=== PATIENT | female | born 1975 | race Caucasian/White ===

== ENCOUNTER 2018-04-14 08:09 | Emergency (ER) | payer SELFPAY ==
[~2018-04-14] VITALS: Ht 157.5 cm; Wt 83.9 kg
[2018-04-14 08:15] VITALS: BP 121/45
--- NOTE | 2018-04-14 08:21 | NUR ---
PT AMBULATES TO BED 11
--- NOTE | 2018-04-14 08:28 | NUR ---
42 Y/O F CAME TO ED WITH C/O CHEST PAIN THAT RADIATES TO L ARM. PAIN /. LABORED BREATHING. 02 STAT 98%. LUNG ROONEY CLEAR BILATERALLY. IN L ARM HAS SOME INTERMINTENT NUMBESS AND TINGLING, MAKING IT DIFFICULT TO MOVE. EXPERIENCING SYMPTOMS SINCE LAST NIGHT. EQUAL HAND GRASPS. HAS EXPERIENCED THIS PAIN BEFORE, BUT RESOLVED ON IT OWN. MD NOTIFIED. WILL CONTINUE TO MONITOR.
[2018-04-14] MEDS ORDERED: KETOROLAC 30 MG/ML VIAL IVP ONE (08:35)
[2018-04-14] MEDS ORDERED: ONDANSETRON 4 MG/2 ML VIAL IVP ONE (08:35)
[2018-04-14] MEDS ORDERED: MORPHINE SULFATE 2 MG/ML SYR IVP ONE (08:35)
--- NOTE | 2018-04-14 09:05 | NUR ---
XRAY AT BEDSIDE
[2018-04-14 09:14] LABS: BASOPHILS % (AUTO) 0.5 % (0.0-2.0); EOSINOPHILS # (AUTO) 0.3 K/uL (0-0.4); EOSINOPHILS % (AUTO) 5.5 % (0.0-4.0); HEMOGLOBIN 13.3 g/dL (12.0-16.0); LYMPHOCYTES # (AUTO) 1.2 K/uL (2.5-16.5); LYMPHOCYTES % (AUTO) 23.4 % (20.5-51.1); MEAN CORPUSCULAR HEMOGLOBIN 31 pg (27-31); MEAN CORPUSCULAR HGB CONC 34 g/dL (33-37); MEAN CORPUSCULAR VOLUME 90.7 fL (80-94); MONOCYTES # (AUTO) 0.4 K/uL (0.8-1.0); NEUTROPHILS # (AUTO) 3.3 K/uL (1.8-7.7); NEUTROPHILS % (AUTO) 63.6 % (42.2-75.2); PLATELET COUNT (AUTO) 301 K/uL (140-450); WHITE BLOOD COUNT (AUTO) 5.2 K/uL (4.8-10.8)
[2018-04-14 09:19] LABS: ANION GAP 10.9 (8-16); CARBON DIOXIDE 27.3 mmol/L (21-32); CREATININE 0.8 mg/dL (0.6-1.3); POTASSIUM 4.2 mmol/L (3.5-5.1); PROTHROMBIN TIME 9.7 secs (10.8-13.4)
[2018-04-14 09:25] LABS: ALBUMIN 3.5 g/dL (3.4-5.0); TOTAL BILIRUBIN 0.3 mg/dL (0.0-1.0)
[2018-04-14 11:17] VITALS: BP 121/45
== END 2018-04-14 11:16 | disposition home or self-care (01) ==
LOC: MED 08:09
DX: M94.0 Chondrocostal junction syndrome [Tietze] (principal)
CPT/HCPCS: 36415; 71045; 80053; 81025; 83735; 83880; 84484; 85025; 85379; 85610; 93005; 96374; 96375; 99284; J1885; J2270; Q0092; J2405

== ENCOUNTER 2018-04-15 20:21 | Emergency (ER) | payer SELFPAY ==
[~2018-04-15] VITALS: Ht 170.2 cm; Wt 85.8 kg
[2018-04-15 20:55] VITALS: BP 111/54
[2018-04-15 21:38] LABS: BASOPHILS % (AUTO) 0.3 % (0.0-2.0); EOSINOPHILS # (AUTO) 0.3 K/uL (0-0.4); EOSINOPHILS % (AUTO) 2.9 % (0.0-4.0); HEMATOCRIT 35.8 % (36-48); HEMOGLOBIN 12.4 g/dL (12.0-16.0); LYMPHOCYTES # (AUTO) 1.3 K/uL (2.5-16.5); LYMPHOCYTES % (AUTO) 14.6 % (20.5-51.1); MEAN CORPUSCULAR HEMOGLOBIN 31 pg (27-31); MEAN CORPUSCULAR HGB CONC 35 g/dL (33-37); MEAN CORPUSCULAR VOLUME 90.9 fL (80-94); MONOCYTES # (AUTO) 0.6 K/uL (0.8-1.0); MONOCYTES % (AUTO) 6.8 % (1.7-9.3); NEUTROPHILS # (AUTO) 6.9 K/uL (1.8-7.7); NEUTROPHILS % (AUTO) 75.4 % (42.2-75.2); PLATELET COUNT (AUTO) 290 K/uL (140-450); RED BLOOD CELL COUNT(AUTO) 3.93 MIL/uL (4.20-5.40); RED CELL DISTRIBUTION WIDTH 12.4 % (11.6-13.7); WHITE BLOOD COUNT (AUTO) 9.2 K/uL (4.8-10.8)
[2018-04-15 21:50] LABS: ANION GAP 10.2 (8-16); CARBON DIOXIDE 28.6 mmol/L (21-32); CREATININE 0.6 mg/dL (0.6-1.3); POTASSIUM 3.8 mmol/L (3.5-5.1)
[2018-04-15 21:57] LABS: ALBUMIN 3.1 g/dL (3.4-5.0); TOTAL BILIRUBIN 0.4 mg/dL (0.0-1.0)
--- NOTE | 2018-04-15 22:28 | NUR ---
PT TAKEN TO BED 11
--- NOTE | 2018-04-15 22:32 | NUR ---
PT CO 10/10 CHEST PAIN AND SOB. EKG DONE IN TRIAGE. VSS. PT WAS SEEN YESTERDAY FOR SAME ISSUE AND WAS PRESCRIBED VOLTAREM XR 100MG BUT REPORTS IT HAS GOTTEN WORSE. PT REPORTS NAUSEA IN THE AM.
--- NOTE | 2018-04-15 23:45 | NUR ---
Dr. Benton evaluating patient at bedside.
[2018-04-15] MEDS ORDERED: KETOROLAC 60 MG/2 ML VIAL IM ONE (23:50)
[2018-04-16 00:45] VITALS: BP 108/60
--- NOTE | 2018-04-16 00:45 | NUR ---
Patient discharged with v/s stable. Written and verbal after care instructions given and explained. Patient alert, oriented and verbalized understanding of instructions. Ambulatory with steady gait. All questions addressed prior to discharge. ID band removed. Patient advised to follow up with PMD. Rx of MOTRIN, PREDNISONE, AND NORCO given. Patient educated on indication of medication including possible reaction and side effects. Opportunity to ask questions provided and answered.
== END 2018-04-16 00:45 | disposition home or self-care (01) ==
LOC: MED 20:21
DX: R07.89 Other chest pain (principal); R06.02 Shortness of breath; R50.9 Fever, unspecified
CPT/HCPCS: 36415; 80053; 83880; 84484; 85025; 85379; 93005; 96372; 99284; J1885